=== PATIENT | female | born 1960 | race Caucasian/White ===

== ENCOUNTER 2016-09-20 13:09 | Emergency (ER) | payer OTHER ==
[~2016-09-20] VITALS: Ht 177.8 cm; Wt 111.0 kg
[~2016-09-20 13:09] MED LIST: ALPR0.5T99 PO; AMBI12.5 PO; CELE20TA PO; LEVO.1 PO; METHTAB3 PO; PROM1SUP12 PR; RANI150 PO
[2016-09-20 13:22] VITALS: BP 126/91; PULSE 94; RESP 17; TEMP 98.7; O2SAT 97
[2016-09-20] MEDS ORDERED: LISI-515 PO (14:58)
[2016-09-20] MEDS ORDERED: ALPR0.5T3 PO (14:58)
[2016-09-20] MEDS ORDERED: PROM12.54 PO (14:58)
[2016-09-20] MEDS ORDERED: BETH25TA2 PO (14:58)
[2016-09-20] MEDS ORDERED: METHTAB PO (14:58)
[2016-09-20] MEDS ORDERED: LEXA20TA PO (14:58)
[2016-09-20] MEDS ORDERED: LIPI40TA PO (14:58)
[2016-09-20] MEDS ORDERED: TEMA30CA PO (14:58)
[2016-09-20] MEDS ORDERED: TETANUS/DIPHTHERIA TOXOID ADULT 0.5 ML VIAL IM ONE (15:15)
[2016-09-20] MEDS ORDERED: LIDOCAINE HCL 1% 50 ML VIAL INFIL ONE (15:15)
--- NOTE | 2016-09-20 15:18 | PD ---
HPI Chief Complaint: Fall Time Seen by Provider: 15:09 Travel History International Travel<30 days: No Contact w/Intl Traveler<30days: No Traveled to known affect area: No History of Present Illness HPI 56-year-old female presents to the emergency room for evaluation of right ear laceration, right-sided neck pain, and left knee pain after trip and fall earlier today. Patient slipped on water on her tile floor and fell hard landing on her left before sliding forward and striking her right ear against the open pantry door. She denies loss of consciousness. She has been ambulatory since onset of symptoms. States her left knee and body feels sore but does not feel broken. She denies paresthesias. Last tetanus was in 2007. PFSH Past Medical History Autoimmune Disease: No Blood Disorders: No Anxiety: Yes Depression: Yes Cancer: No Cardiovascular Problems: Yes COPD: No Diabetes: No Diminished Hearing: No Endocrine: No Gastrointestinal Disorders: Yes (IBS/colitis) GERD: Yes Glaucoma: No Genitourinary: No Headaches: Yes Hepatitis: No Hiatal Hernia: No Hypertension: Yes Immune Disorder: No Implanted Vascular Access Dvce: No Medical other: Yes (GERD ON ZANTAC) Musculoskeletal: Yes (AVASCULAR NECROSIS) Neurologic: No Psychiatric: No Reproductive: No Respiratory: No Immunizations Current: No Sleep Apnea: Yes ( SINCE WEIGHT LOSS DOESN'T NEED C PAP) Thyroid Disease: No Past Surgical History Abdominal Surgery: No AICD: No Arteriovenous Shunt: No Cardiac Surgery: No Section: Yes (3) Ear Surgery: No Endocrine Surgery: No Eye Surgery: No Genitourinary Surgery: No Gynecologic Surgery: Yes (HYSTERECTOMY x3 ) Hysterectomy: Yes Insulin Pump: No Joint Replacement: Yes (right hip replacement; LEFT HIP REPLACEMENT) Neurologic Surgery: No Oral Surgery: No Pacemaker: No Thoracic Surgery: No Other Surgery: Yes (CROWNS) Social History Alcohol Use: Yes (WEEKENDS) Tobacco Use: No Substance Use: No Allergies-Medications (Allergen,Severity, Reaction): Coded Allergies: Compazine (Verified Allergy, Severe, DYSTONIC REACTION, 09/20/16) *MDRO Multi-Drug Resistant Organism (Unverified Allergy, Unknown, 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 Afebrile. Ambulatory. SKIN: Warm and dry. There is a 2 cm well approximated laceration on the antihelix. Extreme tenderness to palpation. Hemostasis controlled. HEAD: Normocephalic. EYES: No scleral icterus. No injection or drainage. NECK: Supple, trachea midline. No JVD or lymphadenopathy. No midline tenderness. Full range of motion. EXTREMITY: Mild tenderness to palpation of the left patella. Full range of motion in all joints. No edema. 2+ dorsalis pedis pulse. No erythema or ecchymosis. Data Data Last Documented VS Vital Signs Date Time Temp Pulse Resp B/P Pulse Ox O2 Delivery O2 Flow Rate FiO2 09/20/16 13:22 98.7 94 17 126/91 97 Orders Lidocaine 1% Inj (50 Ml) (Xylocaine 1% I (09/20/16 15:15) Tetanus/Diphtheria Tox Adult (Tetanus/Di (09/20/16 15:15) MDM Medical Decision Making Medical Screen Exam Complete: Yes Emergency Medical Condition: Yes Medical Record Reviewed: Yes Differential Diagnosis Laceration versus contusion versus abrasion versus fracture versus muscle strain Narrative Course 56-year-old female presents to the emergency room for evaluation of laceration to the right ear after slip and fall just prior to arrival. She struck her left here against open door. Denies loss of consciousness. Patient also has injury to her left knee. Left lower extremity is neurovascularly intact with 2 + dorsalis pedis pulse. There is no erythema, ecchymosis, or edema. No significant bony tenderness to palpation. Full range of motion. Ambulatory since fall. Tetanus updated. Ear laceration repaired, see procedure note for details. Patient told to follow up within 24-48 hours for recheck or return sooner for worsening symptoms. Gentle pressure dressing applied. Discharged with wound care instructions. She understands and agrees to plan. Procedures Procedure Narrative LACERATION LOCATION: Right ear on the antihelix LENGTH: 2 cm NUMBER OF STITCHES/KATELYN: 5 simple interrupted REPAIR: The area of the laceration was prepped with Betadine and sterilely draped. The laceration was infiltrated with 1% lidocaine. The wound was copiously irrigated and explored without evidence of foreign body, tendon injury or neurovascular injury. The wound was closed using 6-0 Prolene. This was a single layer repair. A sterile dressing was applied. The patient was advised to keep the dressing clean and dry. Patient tolerated the procedure well. Diagnosis Primary Impression: Laceration of ear Qualified Code: S01.311A - Laceration of ear, right, initial encounter Referrals: Primary Care Physician Patient Instructions: General Instructions, Laceration (ED) Additional Instructions: Rest and drink plenty of fluids. Keep wound clean and dry. Apply triple antibiotic ointment daily. Recheck in 24 hours as there is a concern for hematoma. Sutures out in 7-10 days. Take ibuprofen with food as directed, as needed for pain. Apply ice to the affected area for 20 minutes at a time, as needed for pain and swelling. Follow-up with a primary care physician. Return to the emergency room for worsening symptoms. Disposition: 01 DISCHARGE HOME Condition: Stable Hilary Cagle Sep 20, 2016 15:17
[2016-09-21] MEDS ORDERED: COVATAB PO (11:13)
== END 2016-09-20 16:44 | disposition home or self-care (01) ==
LOC: PHEFT 13:09
DX: S01.311A Laceration without foreign body of right ear, initial encounter (principal); W01.198A Fall on same level from slipping, tripping and stumbling with subsequent striking against other object, initial encounter; Z23 Encounter for immunization
CPT/HCPCS: 12011; 90471; 90714